=== PATIENT | female | born 1940 | race Caucasian/White ===

== ENCOUNTER 2018-04-28 02:49 | Inpatient (IN) | payer OTHER ==
[~2018-04-28] VITALS: Ht 160 cm; Wt 87.6 kg
[~2018-04-28 02:49] MED LIST: ASPIRIN EC81 M1 PO; CALCIUM + VITA1 EAC1 PO; ELIQUIS5 M1 PO; MULTI-VITAMIN1 EACH PO; NORVASC5 M1 PO; PRAVACHOL40 M1 PO; QUINAPRIL HCL10 M1 PO; SERTRALINE HCL100 MG PO; SOTALOL80 M1 PO; VITAMIN B-121000 MC3 PO
--- NOTE | 2018-04-28 11:53 | Admission Core Measures ---
Acute Coronary Syndrome (CM) ACS Core Measures Acute Coronary Syndrome Diagnosis No Congestive Heart Failure (NEW) CHF Core Measures Congestive Heart Failure Diagnosis No Cerebrovascular Accident CVA Core Measures CVA/TIA Diagnosis No Venous Thromboembolism VTE Core Franny (View Protocol) VTE Risk Factors Surgery No Mechanical VTE Prophylaxis d/t N/A MechProphylax Ordered No VTE Pharm Prophylaxis d/t NA PharmProphylax ordered Problem List As ranked by this Provider includes Assessment & Plan 1. Unilateral primary osteoarthritis, left knee HOME MEDS Home Med List Amlodipine Besylate (Norvasc) 5 MG TABLET 1 TAB PO DAILY BP (Reported) Apixaban (Eliquis) 5 MG TABLET 1 TAB PO BID BLOOD THINNER (Reported) Aspirin (Ecotrin*) 81 MG TABLET.DR 1 TAB PO DAILY HEART/BLOOD (Reported) Calcium Carbonate/Vitamin D3 (Calcium + Vitamin D Tablet) 600 MG-200 TABLET 1 TAB PO DAILY SUPPLEMENT (Reported) Cyanocobalamin (Vitamin B-12) (Unknown Strength) TABLET (Unknown Dose) PO DAILY SUPPLEMENT (Reported) Multivitamin (Multi-Vitamin Daily) 1 EACH TABLET 1 TAB PO DAILY SUPPLEMENT ( Reported) Pravastatin Sodium (Pravachol) 40 MG TABLET 1 TAB PO DAILY CHOLESTEROL ( Reported) Quinapril HCl 10 MG TABLET 1 TAB PO DAILY BP (Reported) Sertraline HCl 100 MG TABLET 1 TAB PO DAILY HOT FLASHES (Reported) Sotalol HCl (Sotalol) 80 MG TABLET 1 TAB PO BID HEART (Reported)
[2018-04-28] MEDS ORDERED: MIRALAX17 G1 PO (12:05)
[2018-04-28] MEDS ORDERED: PRILOSEC OTC20 M1 PO (12:05)
[2018-04-28] MEDS ORDERED: ELIQUIS2.5 M1 PO (12:05)
[2018-04-28] MEDS ORDERED: COLACE100 M1 PO (12:05)
[2018-04-28] MEDS ORDERED: DILAUDID2 M1 PO (12:05)
--- NOTE | 2018-04-28 12:15 | Patient Discharge Instructions ---
Discharge Instructions General Discharge Information You were seen/treated for: Left knee pain related to unilateral primary osteoarthritis You had these procedures: Left total knee replacement Watch for these problems: Increasing pain despite the use of pain medication Increasing redness, warmth or swelling Drainage of any type from incision Inability to bear weight on operative leg Persistent nausea and vomiting Fever greater than 101.5 degrees Do not soak the wound: Yes No bath, but you may shower: Yes Other wound care: Please keep wound clean and dry. No ointments or lotions of any type on or near incision at any time. No exceptions. Your dressing will be changed by your nurse on the second day after your surgery. Daily dry dressing changes are recommended each day thereafter. Do not soak your wound in a bath or pool at any time until otherwise indicated by your surgeon. You may shower, please dry wound immediately after shower with a clean towel. Special Instructions: Constipation: Pain medication can cause constipation. Your surgeon has recommended that you take Colace and miralax each day. You may discontinue this medication if you develop loose stool or diarrhea. If you wish to continue this medication, it is available over the counter. If you are unable to move your bowels after several days, if you are unable to pass gas and are developing bloating, nausea, or vomiting as a result, please contact your doctor. Dania: Dr. Garcia would like you to take 2.5 mg twice a day for one week post-op. Therefore, on 05/05/2018 you are to resume your ususal 5mg twice a day dosing. Diet Continue normal diet: Yes Recommended Diet: Regular Activity Full Activity/No Limits: No Activity Self Limited: Yes Pounds, do NOT lift more than: 10 Acute Coronary Syndrome Inclusion Criteria At DC or during hospital stay patient has or had the following: ACS DIAGNOSIS No Discharge Core Measures Meds if any: Prescribed or Continued at Discharge Meds if any: NOT Prescribed or Continued at Discharge Congestive Heart Failure Inclusion Criteria At DC or during hospital stay patient has or had the following: CHF DIAGNOSIS No Discharge Core Measures Meds if any: Prescribed or Continued at Discharge Meds if any: NOT Prescribed or Continued at Discharge Cerebrovascular accident Inclusion Criteria At DC or during hospital stay patient has or had the following: CVA/TIA Diagnosis No Discharge Core Measures Meds if any: Prescribed or Continued at Discharge Meds if any: NOT Prescribed or Continued at Discharge Venous thromboembolism Inclusion Criteria VTE Diagnosis No VTE Type NONE VTE Confirmed by (Test) NONE Discharge Core Measures - Per Current guidelines, there needs to be overlap - treatment for the first 5 days of Warfarin therapy. - If discharged on Warfarin prior to 5 days of - overlap therapy, the patient will need to be - assessed for post discharge needs including - *Post discharge parental anticoagulation - *Warfarin and/or parental anticoagulation education - *Follow up date to check INR post discharge At least 5 days overlap therapy as Inpatient No Meds if any: Prescribed or Continued at Discharge Note: Overlap Therapy is Warfarin and Anticoagulant Meds if any: NOT Prescribed or Continued at Discharge
--- NOTE | 2018-04-28 12:17 | Surgical Discharge Summary ---
Visit Information Visit Dates Admission Date: 04/28/18 Discharge Date: 05/02/18 History of Present Illness Chief Complaint: Left knee pain related to unilateral primary osteoarthritis Medical History Isolation History: Standard Surgical History Pertinent Surgical History: non-contributory Review of Systems: See H&P Hospital Course Course Attending Physician: Lex Garcia MD Primary Care Physician: Fam LOVE,Marline Rahman Hospital Course: Patient was admitted to the hospital for an elective total joint replacement. The procedure was tolerated well and patient was transferred to a general surgical floor. Diet was advanced and tolerated. The patient was evaluated and treated by physical therapy. At the time of hospital discharge, the vital signs were stable, neurovascular status was intact, and pain was controlled with the use of oral pain medications. Allergies: Coded Allergies: animal dander (SNEEZING, WHEEZING 04/18/18) Disposition Summary Disposition Principal Diagnosis: Left knee unilateral primary osteoarthritis Additional Diagnosis: None Discharge Disposition: home health services Discharge Instructions General Discharge Information Code Status: Full Code Patient's Diet: Regular, advance as tolerated Patient's Activity: WBAT Follow-Up Instructions/Appts: Follow up with Dr. Garcia in 6 weeks from date of surgery. Please call office to arrange &/or confirm this appointment. Medications at Discharge Discharge Medications: Stop taking the following medications: Apixaban (Eliquis) 5 MG TABLET ORAL TWICE DAILY Continue taking these medications: Sotalol HCl (Sotalol) 80 MG TABLET 1 Tablet ORAL TWICE DAILY Comments: Last Taken: 05/02/18 Time: 1000AM Pravastatin Sodium (Pravachol) 40 MG TABLET 1 Tablet ORAL DAILY Comments: Last Taken: 05/01/18 Time: 1600PM Sertraline HCl (Sertraline HCl) 100 MG TABLET 1 Tablet ORAL DAILY Comments: Last Taken: 05/02/18 Time: 1000AM Amlodipine Besylate (Norvasc) 5 MG TABLET 1 Tablet ORAL DAILY Comments: Last Taken: 05/02/18 Time: 1000AM Quinapril HCl (Quinapril HCl) 10 MG TABLET 1 Tablet ORAL DAILY Comments: Last Taken: 05/02/18 Time: 1000AM Multivitamin (Multi-Vitamin Daily) 1 EACH TABLET 1 Tablet ORAL DAILY Comments: Last Taken: 05/02/18 Time: 1000AM Cyanocobalamin (Vitamin B-12) (Unknown Strength) TABLET 1 Tablet ORAL DAILY Comments: NOT GIVEN IN HOSPITAL Aspirin (Ecotrin*) 81 MG TABLET. 1 Tablet ORAL DAILY Comments: NOT GIVEN IN HOSPITAL Calcium Carbonate/Vitamin D3 (Calcium + Vitamin D Tablet) 600 MG-200 TABLET 1 Tablet ORAL DAILY Comments: NOT GIVEN IN HOSPITAL Start taking the following new medications: Apixaban (Eliquis) 2.5 MG TABLET 1 Tablet ORAL TWICE DAILY Qty = 14 No Refills Instructions: RESUME 5MG TWICE DAILY DOSING ON 05/05/2018 Comments: Last Taken: 05/02/18 Time: 1000AM Docusate Sodium (Colace) 100 MG CAPSULE 1 Capsule ORAL TWICE DAILY Qty = 14 No Refills Instructions: DISCONTINUE USE IF YOU DEVELOP LOOSE STOOL OR DIARRHEA Comments: Last Taken: 05/01/18 Time: 0735AM Hydromorphone HCl (Dilaudid) 2 MG TABLET 1-2 Tablet ORAL EVERY 4-6 HOURS NEEDED as needed for PAIN Qty = 36 No Refills Comments: Last Taken: 05/02/18 Time: 0415AM Polyethylene Glycol 3350 (Miralax) 17 GRAM POWD.PACK 1 Packet ORAL DAILY Qty = 7 No Refills Instructions: dissolve in water, DISCONTINUE USE IF YOU DEVELOP LOOSE STOOL OR DIARRHEA Comments: Last Taken: 05/02/18 Time: 0735AM Omeprazole Magnesium (Prilosec Otc) 20 MG TABLET. 1 Tablet ORAL DAILY Qty = 30 No Refills Comments: Last Taken: 05/02/18 Time: 0530AM
[2018-04-28 14:00] VITALS: BP 130/80
--- NOTE | 2018-04-28 14:20 | PN- Orthopedic ---
Subjective Subjective: Postop check: Patient sleepy but arousable. Family at bedside. Mild pain in the front of the knee. No other complaints. She is Recovering well from anesthesia Objective Vital Signs and I&Os Vital signs stable, afebrile Physical Exam: Well-developed well-nourished no apparent distress. HEENT: Atraumatic, extraocular motion intact Neck: Supple, no lymphadenopathy Respiratory: No respiratory distress Extremities: No edema LEFT lower extremity dressing in place, clean dry and intact Compression wrap in place. ALPS in place Neurovascularly intact distally Bilateral calves are supple, nontender. Neuro: Alert and oriented x3 Psych: Mood affect normal, normal memory normal judgment. Skin: Warm and dry, no rash on exposed skin Assessment/Plan Assessment/Plan Postop day #0 status post left total knee arthroplasty Perioperative antibiotics. Pain medication as needed. Out of bed Physical therapy, weightbearing as tolerated IV fluids Regular diet Follow a.m. labs Eliquis for DVT prophylaxis starting tomorrow ALPS for DVT prophylaxis Regular home meds Dressing change postop day 2 Core Measures Venous Thromboembolism VTE Risk Factors Surgery No Mechanical VTE Prophylaxis d/t N/A MechProphylax Ordered No VTE Pharm Prophylaxis d/t NA PharmProphylax ordered
--- NOTE | 2018-04-28 15:03 | Operative Report ---
Operative/Inv Procedure Report Surgery Date: 04/28/18 Name of Procedure: 1. Left total knee replacement 2. Right knee cortisone injection Pre-Operative Diagnosis: Bilateral primary knee DJD Post-Operative Diagnosis: Same Estimated Blood Loss: 50ml to 100ml Surgeon/Transfill Technician: Jose LOVE,Lex Nunez Anesthesia: block Operative/Procedure Note Note: Description of Procedure: The patient was taken to the operating room and positively identified. After induction of spinal anesthesia and administration of appropriate pre-operative antibiotics, the patient was positioned supine on the operating room table and all bony prominences were well padded. The right knee was prepped sterilely and injected with a mixture of 2 mL of Depo -Medrol and 6 mL of half percent Marcaine. A Band-Aid was placed over the injection site. Attention was then turned to the left lower extremity. A well-padded pneumatic tourniquet was placed on the left upper thigh. After performing a surgical timeout, the left lower extremity was prepped and draped in the usual sterile fashion. After exsanguination with Esmarch the tourniquet was inflated to 250mm of mercury. A standard medial parapatellar approach was made to the knee. This was carried down through skin and subcutaneous tissue to the level of the fascia. Meticulous hemostasis was maintained with Bovie electrocautery. The extensor mechanism and patellar retinaculum were opened sharply and the patella was everted. The infrapatellar fat was resected in order to improve exposure. Osteophytes were trimmed from the patella and femoral condyles and the patella was re-everted and tucked laterally. A medial release was performed and the cruciate ligaments were resected. The tibia was then subluxed anteriorly. Utilizing the appropriate extra-medullary guide, the proximal tibia was trimmed perpendicular to the long axis of the tibial shaft. Attention was then turned to the femur. After opening the medullary canal, the distal femoral cut was made in 6 degrees of valgus utilizing the appropriate intra-medullary guide. The extension gap was checked and found to be appropriate. The femur was then sized and the remainder of the femoral cuts were made with a size 3 4-in-1 femoral cutting guide. The flexion gap was checked and found to be symmetric and appropriate. The knee was then trialed with a size 3 femoral component, a size 3 tibial component and a size 13 mm TS polyethylene insert. The patella was trimmed to accept an A 35 patella. This yielded excellent range of motion, stability and patellar tracking. All trial components were removed and the knee was copiously irrigated with sterile saline. All components were cemented into place with [employer] cement. All the components were of the [employer] knee system of the above stated sizes. The knee was again irrigated after cementation. The extensor mechanism and patellar retinaculum were repaired using interrupted #1 vicryl suture. The skin was re-approximated with 2-0 vicryl and closed with dimas. A sterile dressing was applied, the tourniquet was deflated, the patient was awakened and taken to the recovery room in satisfactory condition.
[2018-04-28 16:00] VITALS: BP 154/69
[2018-04-28 18:30] VITALS: BP 150/72
[2018-04-28 21:33] VITALS: BP 138/78
[2018-04-29 02:34] VITALS: BP 162/74
[2018-04-29 06:29] VITALS: BP 164/74
[2018-04-29 09:14] LABS: ABSOLUTE BASOPHIL COUNT 0 /CUMM (0.0-0.2); ABSOLUTE EOSINOPHIL COUNT 0 /CUMM (0.0-0.7); ABSOLUTE GRANULOCYTE CT 10.1 /CUMM (1.4-6.5); ABSOLUTE LYMPH COUNT 1.9 /CUMM (1.2-3.4); ABSOLUTE MONOCYTE COUNT 1.1 /CUMM (0.10-0.60); BASOPHIL % 0.2 % (0.0-2.0); EOSINOPHIL % 0.1 % (0-5); HEMATOCRIT 33.2 % (37-47); MEAN CORPUSCULAR HGB 27.7 PG (27.0-31.0); PLATELET COUNT 353 /CUMM (130-400); RBC DISTRIBUTION WIDTH 15.9 % (11.5-14.5); RED BLOOD CELL CT 3.95 /CUMM (4.20-5.40); WHITE BLOOD CELL COUNT 13.1 /CUMM (4.8-10.8)
[2018-04-29 10:31] VITALS: BP 160/60
--- NOTE | 2018-04-29 10:32 | PN- Orthopedic ---
Subjective Subjective: Reports had nausea last night but that resolved. Had pain on knee , relieved with morphine, currently comfortable Ambulated in room and to chair with PT Objective Vital Signs and I&Os Vital Signs Date Time Temp Pulse Resp B/P B/P Pulse O2 O2 Flow FiO2 Mean Ox Delivery Rate 04/29 0852 78 164/74 04/29 0851 78 164/74 04/29 0747 94 Room Air 04/29 0629 98.1 78 18 164/74 98 Nasal 2.0L Cannula 04/29 0234 98.4 72 20 162/74 98 Nasal 2.0L Cannula 04/29 0000 Nasal 2.0L Cannula 04/28 2133 98.1 74 18 138/78 96 Nasal 2.0L Cannula 04/28 1830 97.5 59 16 150/72 98 Nasal 2.0L Cannula 04/28 1600 97.5 57 18 154/69 98 Nasal 2.0L Cannula 04/28 1600 95 Nasal 2.0L Cannula 04/28 1400 98.0 58 18 130/80 94 Nasal 2.0L Cannula 04/28 1334 94 Nasal 2.0L Cannula Intake & Output 04/29 1600 04/29 0800 04/29 0000 04/28 1600 04/28 0800 04/28 0000 Intake Total 600 955 Output Total 950 700 Balance -350 255 Intake, IV 600 575 Intake, Oral 380 Number 0 Bowel Movements Output, 200 Emesis Output, Urine 950 500 Patient 187 lb 181 lb Weight Weight Reported by Patient Measurement Method Alert, oriented, appropriate, no distress HEENT unremarkable Heart normal rate Lungs clear. Abdimen benign LLE with bandage and Tyson wrap on, intact, neurovascular intact, foot warm , wiggling toes. Assessment/Plan Assessment/Plan 77 yo female with s/p LTKA POD#1 Progressing as expected No signs of infection Increase activity as per PT Oral pain meds/Dilaudid as needed Anticoagulation with Eliquis 2.5 mg X7 days, then 5 mg bid Dressing change tomorrow i anticipate eventually discharged home Core Measures Venous Thromboembolism VTE Risk Factors Surgery No Mechanical VTE Prophylaxis d/t N/A MechProphylax Ordered No VTE Pharm Prophylaxis d/t NA PharmProphylax ordered
[2018-04-29 15:02] VITALS: BP 160/50
[2018-04-29 21:50] VITALS: BP 162/78
--- NOTE | 2018-04-30 07:32 | PN- Orthopedic ---
Subjective Subjective: No acute overnight events reported. Complains of incisional pain, worse with motion but otherwise tolerable. Denies chest pain, shortness of breath and difficulty breathing. Denies nausea and vomitting. Has been voiding without difficulty. Has been oob. Has yet to ambulate on stairs. Objective Vital Signs and I&Os Vital Signs Date Time Temp Pulse Resp B/P B/P Pulse O2 O2 Flow FiO2 Mean Ox Delivery Rate 04/29 2206 94 Room Air 04/29 2150 98.4 89 18 162/78 90 Room Air 04/29 1502 99.0 74 20 160/50 94 Room Air 04/29 1031 98.9 76 20 160/60 91 Room Air 04/29 0852 78 164/74 04/29 0851 78 164/74 04/29 0747 94 Room Air Intake & Output 04/30 0800 04/30 0000 04/29 1600 04/29 0800 04/29 0000 04/28 1600 Intake Total 120 970 550 600 955 Output Total 250 350 375 950 700 Balance -130 620 175 -350 255 Intake, IV 600 575 Intake, Oral 120 970 550 380 Number 0 Bowel Movements Output, 200 Emesis Output, Urine 250 350 375 950 500 Patient 187 lb 181 lb Weight Weight Reported by Patient Measurement Method Physical Exam: General: Alert and oriented x3, no acute distress Cardiac: Irregularly irregular Pulm: CTA bilaterally, non-labored respiratory effort Abdomen: Soft, non-tender, non-distended Extremities: Moves all extremities. Neurovascular status to bialteral lower extremities intact. Bilateral calves soft and non-tender Surgical site: Left knee. Dressing dry and intact. Dressing changed, skin edges well approximated with dimas, no surrounding erythema, no drainage or evidence of active bleeding. Clean dry dressing reapplied. Assessment/Plan Assessment/Plan This is a 77 year old female, POD 2, s/p L TKR. pmh significant for afib, dm, htn, hld -Eliquis 2.5 bid for a total of 7 days post op, then resume 5 bid -ALPS for mechanical dvt ppx -OOB, wbat, stairs today -Continue current pain regimen -Continue diet as tolerated -Continue bowel regimen -Anticipate dc to home with [facility] today vs tomorrow Will discuss plan of care with DR. Garcia Core Measures Venous Thromboembolism VTE Risk Factors Surgery No Mechanical VTE Prophylaxis d/t N/A MechProphylax Ordered No VTE Pharm Prophylaxis d/t NA PharmProphylax ordered
[2018-04-30 07:34] VITALS: BP 165/76
[2018-04-30 15:11] VITALS: BP 140/50
[2018-04-30 21:07] VITALS: BP 140/60
[2018-05-01 07:25] VITALS: BP 124/62
--- NOTE | 2018-05-01 08:16 | PN- Orthopedic ---
Subjective Subjective: POD#3 S/P LEFT TKA cont c/o left knee pain(consistent with procedure) also c/o left lateral ankle pain that started when she was rotating ankle in bed (no fall) alexs cp, sob, no n+v with diet Objective Vital Signs and I&Os Vital Signs Date Time Temp Pulse Resp B/P B/P Pulse O2 O2 Flow FiO2 Mean Ox Delivery Rate 05/01 0739 79 146/78 05/01 0739 79 146/78 05/01 0725 98.8 73 20 124/62 95 04/30 2107 98.7 84 18 140/60 93 Room Air 04/30 1511 98.4 85 20 140/50 93 Room Air 04/30 0837 81 165/76 04/30 0837 81 165/76 Intake & Output 05/01 1600 05/01 0800 05/01 0000 04/30 1600 04/30 0800 04/30 0000 Intake Total 130 170 620 120 970 Output Total 650 200 250 250 350 Balance -520 -30 370 -130 620 Intake, IV 10 20 Intake, Oral 120 150 620 120 970 Number 0 Bowel Movements Output, Urine 650 200 250 250 350 Patient 193 lb Weight Physical Exam: cv: rrr lungs: clear abd: soft: +bs ext: wound c/d/i no calf tenderness bilat distal cms intact Assessment/Plan Assessment/Plan ortho stable plan needs to get oob/ambulate at least twice per day agressively encourage to mobilize titrate pain meds eliquis for dvt prophylaxis d/c planning Core Measures Venous Thromboembolism VTE Risk Factors Surgery No Mechanical VTE Prophylaxis d/t N/A MechProphylax Ordered No VTE Pharm Prophylaxis d/t NA PharmProphylax ordered
[2018-05-01 14:25] VITALS: BP 118/58
[2018-05-01 20:14] VITALS: BP 112/48
[2018-05-02 06:33] VITALS: BP 126/58
--- NOTE | 2018-05-02 09:24 | PN- Orthopedic ---
Subjective Subjective: No acute overnight events reported. Pain controlled. Cleared by pt for home. Is asking to be discharged today. Denies chest pain, shortness of breath and difficulty breathing. Denies nausea and vomitting. Objective Vital Signs and I&Os Vital Signs Date Time Temp Pulse Resp B/P B/P Pulse O2 O2 Flow FiO2 Mean Ox Delivery Rate 05/02 0633 98.3 69 20 126/58 92 05/01 2014 98.4 73 17 112/48 92 Room Air Room Air 05/01 1425 99.2 73 20 118/58 93 Intake & Output 05/02 0800 05/02 0000 05/01 0805/01 0000 Intake Total 942 599 3869 130 170 Output Total 300 300 300 650 200 Balance -50 180 730 -520 -30 Intake, IV 10 30 10 20 Intake, Oral 677 120 6437 120 150 Number 1 5 Bowel Movements Output, Urine 300 300 300 650 200 Physical Exam: General: Alert and oriented x3, no acute distress Cardiac: irregularly irregular Pulm: CTA bilaterally, non-labored respiratory effort Abd: Non-tender, non-distended Extremties: Neurovascular intact bialterally, bilateral calves soft and non- tender Surgical site: Left knee, dressing dry and intact. No surrounding erythema Assessment/Plan Assessment/Plan This is a 77 year old female, POD 4, s/p L tkr -Continue eliquis 2.5 bid until pod 7, then resume 5 mg bid. Discussed with patient -OOB, wbat -Diet as tolerated -Continue current pain regimen -DC to home with [facility] today Will discuss with Dr. Garcia Core Measures Venous Thromboembolism VTE Risk Factors Surgery No Mechanical VTE Prophylaxis d/t N/A MechProphylax Ordered No VTE Pharm Prophylaxis d/t NA PharmProphylax ordered
[2018-05-02 10:06] VITALS: BP 126/58
== END 2018-05-02 13:17 | disposition home health service (06) | DRG 470 ==
LOC: SDA 02:49 → ENRESERV 12:35 → ENTRNSPT 12:59 → EDTRNSPTSTS 13:26 → EDTRNSPT 13:26 → 2NB 13:34 → CMPTRNSPT 13:47 → ENPENDDIS 05-02 10:00 → ENTRNSPT 05-02 12:59 → EDTRNSPT 05-02 13:10 → EDTRNSPTSTS 05-02 13:10 → 2NB 05-02 13:17 → CMPTRNSPT 05-02 13:33
PROVIDERS: Nurse Practitioner
PROC: 0SRD0J9 Replacement of Left Knee Joint with Synthetic Substitute, Cemented, Open Approach (ICD-10-PCS; principal; 2018-04-28)
PROC: 3E0T3BZ Introduction of Anesthetic Agent into Peripheral Nerves and Plexi, Percutaneous Approach (ICD-10-PCS; principal; 2018-04-28)
DX: M17.12 Unilateral primary osteoarthritis, left knee (principal); I10 Essential (primary) hypertension; E78.5 Hyperlipidemia, unspecified; E11.9 Type 2 diabetes mellitus without complications; I48.91 Unspecified atrial fibrillation; Z79.01 Long term (current) use of anticoagulants
CPT/HCPCS: 2NBP; 36415; 82436; 97110-GO; 97112-GO; 97116-GO; 97161-GP; 97530-GO; C1713; C9290; J0131; J0690; J1630; J2405; J2550; J3370; J3490; J7040; J7042